=== PATIENT | female | born 1965 | race Caucasian/White ===

== ENCOUNTER 2020-01-31 14:28 | Outpatient (CLI) | payer BC, SELFPAY ==
[2020-01-31 16:24] LABS: Basophils Absolute Auto 0.1 K/mm3 (0.0-0.1); Eosinophils Absolute Auto 0.3 K/mm3 (0-0.3); Eosinophils Percent Auto 3.5 % (0-4.4); Hematocrit 43.8 % (37.0-47.0); Hemoglobin 14.9 g/dL (12.0-15.0); Immature Granulocyte Absolute 0.03 K/mm3 (0.00-0.031); Immature Granulocyte Percent A 0.4 % (0-0.5); Lymphocytes Absolute Auto 2.36 K/mm3 (0.9-3.2); Lymphocytes Percent Auto 29.4 % (18.3-44.2); Mean Corpuscular Hemoglobin 30.4 pg (26-34); Mean Corpuscular Volume 89.4 fl (80-100); Mean Platelet Volume 10.3 fl (7.4-10.4); Monocytes Absolute Auto 0.6 K/mm3 (0.1-0.6); Monocytes Percent Auto 7.1 % (2.6-8.5); Neutrophils Absolute Auto 4.7 K/mm3 (1.3-6.7); Neutrophils Percent Auto 58.6 % (45.5-73.1); Platelet Count Result 296 k/mm3 (150-375); Red Cell Distribution Width 13.2 % (11.5-14.5)
[2020-01-31 16:37] LABS: Alanine Aminotransferase 29 U/L (4-35); Albumin Level 4.4 g/dL (3.5-5.1); Alkaline Phosphatase 77 U/L (38-126); Aspartate Amino Transferase 31 U/L (14-36); Bilirubin,Total 0.5 mg/dL (0.2-1.3); Blood Urea Nitrogen 17 mg/dL (7-17); Carbon Dioxide 25 mmol/L (22-30); Chloride 104 mmol/L (98-107); Cholesterol 212 mg/dL (0-200); Estimated Glomerular Filt Rate > 60; Glucose 78 mg/dL (65-105); HDL Direct 70 mg/dL; Sodium 137 mmol/L (137-145); Triglycerides 89 mg/dL (<150); Uric Acid 7.5 mg/dL (2.5-7.5)
[2020-01-31 16:48] LABS: LDL Cholesterol Direct 105 mg/dL
[2020-01-31 16:54] LABS: Erythrocyte Sedimentation Rate 15 mm/hr (0-20)
[2020-01-31 19:37] LABS: Hemoglobin A1C 5.4 % (<5.7)
== END 2020-01-31 14:29 | disposition home or self-care (01) ==
LOC: ANHLAB 14:30
PROVIDERS: PCP Family Medicine; Visit Provider Family Medicine
DX: I10 Essential (primary) hypertension (principal); Z13.220 Encounter for screening for lipoid disorders; R53.82 Chronic fatigue, unspecified; E66.01 Morbid (severe) obesity due to excess calories; M35.1 Other overlap syndromes; M25.50 Pain in unspecified joint; M25.561 Pain in right knee
CPT/HCPCS: 36415; 80053; 80061; 83036; 84443; 84550; 85025; 85652

== ENCOUNTER 2020-02-14 12:30 | Outpatient (RCR) | payer BC, SELFPAY ==
--- NOTE | 2020-01-17 16:42 | PTOPEVAL ---
PHYSICAL THERAPY EVALUATION AND PLAN OF CARE 01-17-2020 The PT evaluation was completed for the diagnosis of R medial collateral ligament strain. The plan of care is scheduled for 1-2x/week for 4 weeks. Thank you for referring Butch Carreno to [facility]. Please review, sign, date and return this plan of care DIAMOND. I agree with and certify that the following plan of care is medically necessary. Referring Physician Date Attending Provider: Eli Potts MD *PT Outpatient Evaluation Start: 01/17/20 16:19 Document 01/17/20 13:30 YUDITH (Rec: 01/17/20 16:42 YUDITH [email or web address]) Outpatient Past Medical History Past Medical History Source of Past Medical History Patient Neurological History Hx Neurological Disorders No Significant History Cardiovascular History Hx Hypertension Yes Respiratory History Hx Respiratory Disorders No Significant History Gastrointestinal History Hx Gastrointestinal Disorders No Significant History Genitourinary History Hx Genitourinary Disorders No Significant History Musculoskeletal History Hx Other Musculoskeletal Disorders Yes: mixed connective tissue disease;obesity Hematological History Hx Hematological Disorders No Significant History Endocrine History Hx Endocrine Disorders No Significant History Reproductive History Hx Hysterectomy Yes Evaluation Information Problem Diagnosis R knee medial collateral ligament strain Onset December 31, 2019 Subjective Information knee just started hurting; Query Text:As Reported By Patient/ steroids helped the pain, but Family had to stop taking due to increased BP; knee is better and sometimes swells; Diagnostic Tests X-Rays For This Problem Yes: OA knee MRI For This Problem No Other Tests For This Problem No Prior Level of Function Activity Level (Last 3 Months) 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
--- NOTE | 2020-02-14 13:16 | PTOPEVAL ---
PHYSICAL THERAPY DISCHARGE 02-14-2020 Ms. Carreno has received 9 PT sessions, from January 16 to today, for the diagnosis of R knee medial collateral ligament strain. She has improved in all areas--decreased pain, increased strength, no longer using the cane, walking and stairs are no longer an issue and she is independent with her home exercise program. The goals have been achieved, therefore she will be discharged from PT at this time. Thank you for referring Butch to [facility] [place]. Please review, sign, date and return this discharge DIAMOND. I agree with and certify that the following plan of care is medically necessary. 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 To continue HEP. Pain Assessment Timing of Pain Assessment Timing of Pain Assessment Assessment Pain Scale Pain Scale Used Numeric (1 - 10) Self Report Pain Assessment Right Knee(s) Reported Pain Level 0 Pain Frequency Acute Other Pain Description knee swollen behind knee and below knee cap Lowest Pain Intensity 0 Greatest Pain Intensity 3 Additional Pain Comments no problems on stairs; walking at 20 min sore, but can keep walking-does not limit her walking Pain Score Pain Score 0: Self Report Lower Extremity Muscle Strength Testing General Lower Extremity Strength Gross Lower Extremity Strength standing with 1 UE hold: 3# ankle wt: 20 reps: hip abduct, knee flexion hip ext and hip flexion; SLS 30 sec with good stability ; -// bars: wobble board: stabilization, DF/PF, circles x10 with PRN touch UE; gastroc stretch with lunge x 3 reps; -B leg press 100#/ R only 80# / L only 80# x 15 each; - green theraband: 20'- walking side R, side L, forward & backwards; Gait Assessment Gait Assessment Ambulation Assistive Devices None Ambulation Ability Independent Additional Ambulation Comments go
== END 2020-02-14 14:07 | disposition home or self-care (01) ==
LOC: ANHPT 12:30
PROVIDERS: PCP Family Medicine; Visit Provider Family Medicine
DX: S83.419D Sprain of medial collateral ligament of unspecified knee, subsequent encounter (principal)
CPT/HCPCS: 97110; 97140; 97161

== ENCOUNTER 2020-03-04 00:11 | Outpatient (CLI) | payer BC, SELFPAY ==
[2020-03-04 18:55] LABS: SARS-CoV-2 RNA PCR Negative
== END 2020-03-04 00:12 | disposition home or self-care (01) ==
LOC: ANHCOVIDDT 00:11
PROVIDERS: PCP Family Medicine; Visit Provider Internal Medicine Gastroenterology
DX: Z01.818 Encounter for other preprocedural examination (principal); Z11.59 Encounter for screening for other viral diseases
CPT/HCPCS: 87635; C9803; J1200; J2405; J2590; U0003

== ENCOUNTER 2020-03-06 01:41 | Day surgery (SDC) | payer BC, SELFPAY ==
[2020-02-28 13:50] VITALS: BMI 46.5
--- NOTE | 2020-03-06 08:25 | WPDANESEPPF ---
Anes - Initial Pre Proc Eval Procedure: Operation Date: 03/06/20 09:30 Proposed Procedures p Screening Colonoscopy - Mike Banks MD Date/Time: 03/06/20 08:25 Surgeon: Mike Banks MD Pre Op Diagnosis: neoplasm screening Patient Data Age: 54 Gender: F Height: 1.63 m Weight: 123 kg Allergies Allergy/AdvReac Type Severity Reaction Status Date / Time adhesive Allergy Unknown BLISTERING Verified 02/28/20 13:49 RASH Home Medications Medication Instructions Recorded Confirmed Type diclofenac sodium 1 % topical gel 4 gm TOPICAL QID #100 gm 01/07/20 02/28/20 Rx hydrochlorothiazide 12.5 mg tablet 12.5 mg PO DAILY #90 tablet 02/27/20 02/28/20 Rx lisinopril 10 mg tablet 10 mg PO DAILY #90 tablet 02/27/20 02/28/20 Rx naproxen sodium [Aleve] 220 mg PO BID 02/28/20 03/06/20 History Patient hx anesthesia problems: none Family hx anesthesia problems: none PMFSH Past Medical History Medical History (Updated 03/06/20 @ 08:26 by Moris Ayala MD) Arthritis of knee Benign essential HTN Depression Endometriosis Mixed connective tissue disease Morbid obesity Surgical History Surgical History (Updated 01/08/20 @ 08:51 by Eli Potts MD) Hx of hysterectomy Family History Family History (Updated 01/08/20 @ 08:51 by Eli Potts MD) Other Heart disease Hypertension Social History Social History (Updated 02/05/20 @ 12:59 by Goldie Mcduffie) Years smoked: 5 Smoking status: Former smoker Tobacco type: cigarettes Second hand tobacco smoke exposure: No Smoking end date: 09/12/88 Alcohol intake: current Substance use: never Substance use type: does not use Gender identity (if verbalized by the patient): Female Anes - Eval Final PreProcedure Day of Procedure 03/06/20 08:25 Patient weight: morbidly obese Heart: regular rate and rhythm Lungs: clear to auscultation and normal air movement Airway: Mallampati scale class II Neurological: alert and oriented Last oral intake: >/= 8 hours ASA classification: III Emergent: no Anesthetic plan: proceed Anesthesia type and monitoring: general GIVS Informed Consent: The patient's anesthetic plan and its attendant risks and benefits were discussed with the patient/family/POA. Questions were solicited and answers provided to the satisfaction of the patient/family/POA.
[2020-03-06 08:55] VITALS: BP 142/79; PULSE 82; RESP 16; TEMP 36.8; O2SAT 100
[2020-03-06] MEDS: LACTATED RINGERS 1,000 ML 150 ML IV CONT (09:06)
--- NOTE | 2020-03-06 09:44 | WPDGICN ---
Assessment and Plan Assessment and plan (1) Family history of colonic polyps: Code(s): Z83.71 - Family history of colonic polyps Status: Acute Assessment and Plan: Patient's father had colon polyps. Plan is for screening colonoscopy now. Consider follow-up colonoscopy in 5 years. Further recommendations will be given after endoscopy. (2) Morbid obesity: Code(s): E66.01 - Morbid (severe) obesity due to excess calories Status: Acute (3) Mixed connective tissue disease: Code(s): M35.1 - Other overlap syndromes Status: Acute GI Consult Note Consult date/time: 03/06/20 09:44 HPI: Butch Carreno is a 54 year old female Seen in evaluation at the request of Dr. De Jesus. patient presents for screening colonoscopy. Family history is significant that her father had colon polyps. Patient states that her own weight appetite bowel movements are normal. She denies abdominal pain she denies any bleeding. Bowel habits are regular her weight has remained stable. Review of Systems Review of Systems: All systems reviewed & are unremarkable except as noted in HPI and below PMFSH Past Medical History Medical History Arthritis of knee Benign essential HTN Depression Endometriosis Mixed connective tissue disease Morbid obesity Surgical History Surgical History Hx of hysterectomy Family History Family History Other Heart disease Hypertension Social History Social History Years smoked: 5 Smoking status: Former smoker Tobacco type: cigarettes Second hand tobacco smoke exposure: No Smoking end date: 09/12/88 Alcohol intake: current Substance use: never Substance use type: does not use Gender identity (if verbalized by the patient): Female Meds Home Medications and Allergies Home Medications Medication Instructions Recorded Confirmed Type diclofenac sodium 1 % topical gel 4 gm TOPICAL QID #100 gm 01/07/20 02/28/20 Rx hydrochlorothiazide 12.5 mg tablet 12.5 mg PO DAILY #90 tablet 02/27/20 02/28/20 Rx lisinopril 10 mg tablet 10 mg PO DAILY #90 tablet 02/27/20 02/28/20 Rx naproxen sodium [Aleve] 220 mg PO BID 02/28/20 03/06/20 History Allergies Allergy/AdvReac Type Severity Reaction Status Date / Time adhesive Allergy Unknown BLISTERING Verified 02/28/20 13:49 RASH Vital Signs Vital Signs - 24 hr 03/06/20 08:55 Temperature 36.8 C Pulse Rate 82 Respiratory Rate 16 Blood Pressure 142/79 H Pulse Oximetry 100 Exam Narrative: Exam Narrative: Physical exam reveals patient to be alert. Vital signs stable. HEENT exam unremarkable. Lungs are clear to auscultation and percussion. Heart is without murmur or extra sounds. Abdominal exam bowel sounds present soft nontender with no organomegaly. Digital external rectal exam normal.
[2020-03-06 10:14] VITALS: BP 118/72; PULSE 86; RESP 21; O2SAT 98
[2020-03-06 10:24] VITALS: BP 111/65; PULSE 80; RESP 14; O2SAT 100
[2020-03-06 10:34] VITALS: BP 114/68; PULSE 77; RESP 20; O2SAT 100
[2020-03-06 10:44] VITALS: BP 107/66; PULSE 73; RESP 21; O2SAT 100
== END 2020-03-06 10:49 | disposition home or self-care (01) ==
PROVIDERS: PCP Family Medicine; Visit Provider Internal Medicine Gastroenterology
PROC: 0DJD8ZZ Inspection of Lower Intestinal Tract, Via Natural or Artificial Opening Endoscopic (ICD-10-PCS; CPT 45378; principal; 2020-03-06 09:30)
DX: Z12.11 Encounter for screening for malignant neoplasm of colon (principal); K57.30 Diverticulosis of large intestine without perforation or abscess without bleeding; K64.8 Other hemorrhoids; E66.01 Morbid (severe) obesity due to excess calories; Z68.42 Body mass index [BMI] 45.0-49.9, adult; I10 Essential (primary) hypertension; M35.1 Other overlap syndromes; M17.10 Unilateral primary osteoarthritis, unspecified knee; F32.9 Major depressive disorder, single episode, unspecified; Z87.891 Personal history of nicotine dependence; Z83.71 Family history of colonic polyps
CPT/HCPCS: 45378; J2704; J7120

== ENCOUNTER 2020-03-11 14:42 | Outpatient (CLI) | payer BC, SELFPAY ==
--- NOTE | ~2020-03-11 | MM_ITS ---
EXAMINATION: MM screening jane BI w noah HISTORY: Screening mammogram TECHNIQUE: Craniocaudal and mediolateral oblique 3-D tomosynthesis images were obtained and synthetic 2-D images were generated. CAD analysis was submitted and interpreted. COMPARISON: No prior studies for comparison. BREAST PARENCHYMAL COMPOSITION: There are scattered areas of fibroglandular density. FINDINGS: There is no evidence of suspicious mass, calcification, or architectural distortion to sugg est malignancy in either breast. There has been no suspicious interval change. IMPRESSION: 1. No mammographic evidence of malignancy. 2. Recommend routine screening mammography in one year. BI-RADS Category 1: Negative Reviewed, dictated and finalized at location A.
== END 2020-03-11 14:43 | disposition home or self-care (01) ==
LOC: ANHIMG 14:44
PROVIDERS: PCP Family Medicine; Visit Provider Family Medicine
DX: Z12.31 Encounter for screening mammogram for malignant neoplasm of breast (principal)
CPT/HCPCS: 77063; 77067

== ENCOUNTER 2020-08-20 00:12 | Outpatient (CLI) | payer BC, SELFPAY ==
[2020-08-21 16:05] LABS: SARS-CoV-2 RNA PCR Negative
== END 2020-08-20 00:13 | disposition home or self-care (01) ==
LOC: ANHCOVIDDT 00:12
PROVIDERS: PCP Family Medicine; Visit Provider Internal Medicine Critical Care Medicine
DX: Z20.828 Contact with and (suspected) exposure to other viral communicable diseases (principal)
CPT/HCPCS: 87635; C9803; U0003

== ENCOUNTER 2020-08-22 08:09 | Outpatient (CLI) | payer BC, SELFPAY ==
--- NOTE | 2020-10-03 15:08 | WPDSLEEPSTUD ---
Sleep Study Date of Study: 08/22/20 Ordering Provider: Dr.Sophia Potts Interpreting Physician: Sleep Study Type: Polysomnogram Height: 1.63 m Weight: 112.491 kg Body Mass Index: 42.5 Neck Circumference: 40.64 cm [place]: 12 Reason for Sleep Study Loud snoring, daytime fatigue, excessive daytime sleepiness. Sleep History History of loud snoring, poor quality of sleep with repeated awakenings, occasional awakening at night gasping for air, daytime sleepiness of moderate degree, comorbid conditions including hypertension and mixed connective tissue disorder. [facility] Past Medical History Medical History (Updated 09/25/20 @ 11:08 by Eli Potts MD) Arthritis of knee Benign essential HTN Depression Endometriosis Mixed connective tissue disease Morbid obesity Surgical History Surgical History Hx of hysterectomy Family History Family History (Updated 07/01/20 @ 10:20 by Benita Martel PA-C) Mother T-cell lymphoma Grandparent Breast cancer Other Heart disease Hypertension Social History Social History Social History: Years smoked: 5 Smoking status: Former smoker Tobacco type: cigarettes Second hand tobacco smoke exposure: No Smoking end date: 09/12/88 Alcohol intake: current Substance use: never Substance use type: does not use Gender identity (if verbalized by the patient): Female Medications Home Medications Medication Instructions Recorded Confirmed Type naproxen sodium [Aleve] 220 mg PO BID 02/28/20 09/25/20 History diclofenac sodium 1 % topical gel 2 g TOPICAL QID #100 g 07/15/20 09/25/20 Rx hydrochlorothiazide 12.5 mg tablet 12.5 mg PO DAILY #90 tablet 07/15/20 09/25/20 Rx lisinopril 10 mg tablet 10 mg PO DAILY #90 tablet 08/22/20 09/25/20 Rx zolpidem 10 mg tablet 10 mg PO ONCE #1 tablet 09/25/20 09/25/20 Rx Sleep Procedure Basic PSG. Sleep Architecture a total recording time 439 minutes, total sleep time 329 minutes, sleep efficiency 75%. Sleep latency 9 minutes, REM latency 250 minutes. Awake after sleep onset 100 minutes, stage N1 12.7%, N2 70.4%, N3 5.6%, stage 11.2%. Supine sleep 31.3% supine REM sleep 0% Respiratory Analysis AASM criteria used. Patient had 21 apneas, 20 obstructive and 1 central. Apnea index 3.8. There were 54 hypopneas with a hypopnea index of 9.8. AHI 13.7. Non-REM events 8.4, REM events 55.1. Supine events 9.3, non supine events 15.6. Arousals total arousals 146 with index 19.9. Spontaneous arousals 58, snore arousals 57, respiratory arousals 16. Periodic Limb Movements Forty-six leg movements observed with index 8.4, 15 associated with arousals with index 2.0. There were no PLMS. Oximetry Data mean oxygen saturation 93%, lowest saturation 77%SaO2<90%-7.9Min,SaO2<88%-3.9Min. Snoring Profile moderate degree of snoring noted. Cardiac Profile normal sinus rhythm. Mean heart rate 70 beats per minute. few PVCs noted. EEG Profile unremarkable EEG. Assessment and Plan Additional Plan patient appears to have [id number] obstructive sleep apnea. During REM sleep the severity of the disordered can be considered significant. Majority of the events occurred in the 2nd half of the study and the patient did not qualify for a split night protocol. However given the severity of the disorder particularly during REM sleep and episodes of periodic desaturation along with her comorbid conditions, patient should return for full night CPAP titration study in lab. Other measures such as weight reduction, correction of upper airway obstruction if present and proper sleep hygiene will be of additional help.
[2020-10-03 15:28] VITALS: BMI 42.5
== END 2020-08-22 08:10 | disposition home or self-care (01) ==
LOC: ANHCSM 08:10
PROVIDERS: PCP Family Medicine; Visit Provider Family Medicine
DX: G47.33 Obstructive sleep apnea (adult) (pediatric) (principal); R06.83 Snoring
CPT/HCPCS: 95810

== ENCOUNTER → 2020-10-22 01:37 | Outpatient (CLI) | payer BC, SELFPAY ==
[2020-10-22 22:34] LABS: SARS-CoV-2 RNA PCR Negative
== END ==
PROVIDERS: PCP Family Medicine; Visit Provider Internal Medicine Critical Care Medicine
DX: Z01.812 Encounter for preprocedural laboratory examination (principal); Z20.822 Contact with and (suspected) exposure to COVID-19
CPT/HCPCS: C9803; U0003; U0005

== ENCOUNTER 2020-10-24 07:04 | Outpatient (CLI) | payer BC, SELFPAY ==
--- NOTE | 2020-11-10 20:16 | WPDSLEEPSTUD ---
Sleep Study Date of Study: 10/24/20 Ordering Provider: Eli Potts MD Interpreting Physician: Concepcion Thomas MD Sleep Study Type: CPAP Titration Height: 1.63 m Weight: 112.491 kg Body Mass Index: 42.5 Neck Circumference: 40.64 cm [place]: 12 Reason for Sleep Study mild sleep apnea noted on a nocturnal polysomnogram August 22, 2020, AHI 13.7, desaturation to 77%. Sleep History Butch Carreno is a 55 year old female with loud snoring and poor quality sleep. On August 22, 2020 she had a nocturnal polysomnogram with an apnea-hypopnea index of 13.7, minimum desaturation of 77% and moderate snoring. she did not meet criteria early enough in the night to proceed with CPAP. She presents now for a CPAP titration. Her sleep complaints also included daytime fatigue and excessive daytime sleepiness. She had poor quality sleep with frequent episodes of wakening throughout the night. She also gasps for air. She had hypertension and mixed connective tissue disorder. [facility] Past Medical History Medical History (Updated 11/10/20 @ 20:29 by Concepcion Thomas MD) Arthritis of knee Benign essential HTN Depression Endometriosis Mixed connective tissue disease Morbid obesity Surgical History Surgical History Hx of hysterectomy Family History Family History Mother T-cell lymphoma Grandparent Breast cancer Other Heart disease Hypertension Social History Social History Social History: Years smoked: 5 Smoking status: Former smoker Tobacco type: cigarettes Second hand tobacco smoke exposure: No Smoking end date: 09/12/88 Alcohol intake: current Substance use: never Substance use type: does not use Gender identity (if verbalized by the patient): Female Medications Home Medications Medication Instructions Recorded Confirmed Type naproxen sodium [Aleve] 220 mg PO BID 02/28/20 09/25/20 History diclofenac sodium 1 % topical gel 2 g TOPICAL QID #100 g 07/15/20 09/25/20 Rx hydrochlorothiazide 12.5 mg tablet 12.5 mg PO DAILY #90 tablet 07/15/20 09/25/20 Rx lisinopril 10 mg tablet 10 mg PO DAILY #90 tablet 08/22/20 09/25/20 Rx zolpidem 10 mg tablet 10 mg PO ONCE #1 tablet 09/25/20 09/25/20 Rx Sleep Procedure This test was performed using the Moogi multiple channel system including EOG, EEG, submental EMG, EKG, nasal and oral airflow using thermistors and nasal pressure sensors, chest and abdominal belts for body position data, and pulse oximetry. Video monitoring was also performed. The study was scored using CMS guidelines. She self administered zolpidem 10 mg at 9:10 p.m.. CPAP was started at 5 cm using an extra small Rider FX nasal pillow and heated humidifier. CPAP was increased gradually to 10 cm with 2 cm EPR. At this pressure she spent 2 hours 10 minutes in bed, 32 minutes in REM, 1 hour 23 minutes in non-REM, had 7 central apneas 3 hypopneas with an AHI of 5.2. Sleep efficiency was 88%. Sleep Architecture The duration of the recording time is 467.3 minutes. Sleep time is 404.4 minutes. Sleep efficiency is 86.5%. Sleep latency is 14.9 minutes. REM latency is 93 minutes. She had 22 awakenings, spent 10.6% of the study awake after sleep onset, 48 minutes. Sleep architecture showed 4.5% stage I sleep, 66.6% stage II sleep, absence of stage III sleep and 18.2% stage REM. She spent 35.4% of this titration in the supine position. She had 4 REM cycles. Respiratory Analysis The apnea-hypopnea index is 1.5. The obstructive index is 0.4 and the central index is 1.0. In supine REM she had 2 obstructive hypopneas for an index of 2.3. An nonsupine REM she had 3 central apneas for an index of 6.0. And supine non-REM she had 4 central apneas and 1 obstructive hypopnea for an index of 2.8. She had no events
[2020-11-10 20:26] VITALS: BMI 42.5
== END 2020-10-24 07:05 | disposition home or self-care (01) ==
LOC: ANHCSM 07:06
PROVIDERS: PCP Family Medicine; Visit Provider Family Medicine
DX: G47.33 Obstructive sleep apnea (adult) (pediatric) (principal)
CPT/HCPCS: 95811

== ENCOUNTER 2021-08-21 08:47 | Outpatient (CLI) | payer BC, SELFPAY ==
--- NOTE | ~2021-08-21 | MM_ITS ---
EXAMINATION: MM screening jane BI w noah HISTORY: Screening TECHNIQUE: Craniocaudal and mediolateral oblique 3-D tomosynthesis images were obtained and synthetic 2-D images were generated. CAD analysis was submitted and interpreted. COMPARISON: 03/11/2020 BREAST PARENCHYMAL COMPOSITION: There are scattered areas of fibroglandular density. FINDINGS: There is no evidence of suspicious mass, calcification, or architectural distortion to sugg est malignancy in either breast. There has been no suspicious interval change. IMPRESSION: 1. No mammographic evidence of malignancy. 2. Recommend routine screening mammography in one year. BI-RADS Category 1: Negative Reviewed, dictated and finalized at location A. R LAYER
== END 2021-08-21 08:48 | disposition home or self-care (01) ==
PROVIDERS: PCP Family Medicine; Visit Provider Physician Assistant
DX: Z12.31 Encounter for screening mammogram for malignant neoplasm of breast (principal)
CPT/HCPCS: 77063; 77067

== ENCOUNTER → 2022-03-26 15:22 | Outpatient (CLI) | payer BC, SELFPAY ==
--- NOTE | ~2022-03-26 | XR_ITS ---
XR foot RT standing 2V DATE: 03/26/2022 16:24 INDICATION: Abnormal neurological findings TECHNIQUE: Weightbearing AP and lateral views COMPARISON: None FINDINGS: Prominent distal Achilles tendon calcification. Prominent plantar calcaneal enthesopathy wi thout erosive change or periostitis. There is mild to moderate osteoarthritis at the first metatarsophalangeal joint. There is mild osteoa rthritis of the second metatarsophalangeal joint. No fracture or dislocation, periosteal reaction or bone destruction. No erosive change. IMPRESSION: Prominent distal Achilles tendon calcification and prominent plantar calcaneal enthesopat hy Osteoarthritis at first and second metatarsophalangeal joints Reviewed, dictated and finalized at location A. IMPRESSION: Prominent distal Achilles tendon calcification and prominent planta r calcaneal enthesopathy Osteoarthritis at first and second metatarsophalangeal joints
--- NOTE | ~2022-03-26 | XR_ITS ---
XR hand BI arthritis min 3V 03/26/2022 16:24 Indication: Osteoarthritis Procedure: 4 views each hand Comparison: No prior studies for comparison. Findings: There is mild osteoarthritis of the right first interphalangeal joint. There is anatomic al ignment. There is mild osteoarthritis of the right first carpometacarpal and triscaphe joint. There i s mild osteoarthritis of the left first metacarpal phalangeal and interphalangeal joint as well as th e triscaphe and first carpometacarpal joints. No erosive changes. No fracture or traumatic malalignme nt Impression: 1: Mild bilateral polyarticular osteoarthritis. Reviewed, dictated and finalized at location A. Impression: 1: Mild bilateral polyarticular osteoarthritis.
--- NOTE | ~2022-03-26 | XR_ITS ---
XR foot LT standing 2V 03/26/2022 16:25 Indication: Left foot pain Procedure: 2 views left foot Comparison: No prior studies for comparison. Findings: There is mild osteoarthritis of the first MTP joint. Small degenerative calcaneal enthesoph ytes. No fracture or traumatic malalignment. No focal soft tissue abnormality. No foreign bodies. Impression: 1: Mild osteoarthritis of the first MTP joint. Reviewed, dictated and finalized at location A. Impression: 1: Mild osteoarthritis of the first MTP joint.
--- NOTE | ~2022-03-26 | XR_ITS ---
XR knee RT min 4V DATE: 03/26/2022 16:24 INDICATION: Abnormal immunological findings. Right knee pain TECHNIQUE: 4 views COMPARISON: None FINDINGS: There is tricompartment osteoarthritis with periarticular spurring at all 3 compartments. T here is moderately severe narrowing at the medial compartment joint space. No fracture or dislocation or joint effusion. No radiopaque intra-articular loose body or chondrocalc inosis. No periosteal reaction or bone destruction. IMPRESSION: Tricompartment osteoarthritis, most prominent at the medial compartment Reviewed, dictated and finalized at location A. IMPRESSION: Tricompartment osteoarthritis, most prominent at the medial compart ment
--- NOTE | ~2022-03-26 | XR_ITS ---
XR knee LT min 4V DATE: 03/26/2022 16:25 INDICATION: Abnormal immunological findings. Left knee pain. TECHNIQUE: 4 views COMPARISON: None FINDINGS: There is severe loss of medial compartment joint space height. There is periarticular spurr ing at all 3 compartments. There is osteopenia. No fracture or dislocation or joint effusion. No periosteal reaction or bone destruction. No radiopaq ue intra-articular loose body or chondrocalcinosis. IMPRESSION: Tricompartment osteoarthritis, severe joint space narrowing at the medial compartment Reviewed, dictated and finalized at location A.
== END ==
PROVIDERS: PCP Family Medicine; Visit Provider Internal Medicine
DX: M19.042 Primary osteoarthritis, left hand (principal); M19.041 Primary osteoarthritis, right hand; R76.8 Other specified abnormal immunological findings in serum; M77.31 Calcaneal spur, right foot; M19.072 Primary osteoarthritis, left ankle and foot; M19.071 Primary osteoarthritis, right ankle and foot; M17.0 Bilateral primary osteoarthritis of knee
CPT/HCPCS: 73130; 73564; 73620

== ENCOUNTER 2022-06-15 18:46 | Emergency (ER) | payer BC, SELFPAY ==
[2022-06-15 19:08] VITALS: BP 135/61; PULSE 77; RESP 16; TEMP 36.6; O2SAT 98
--- NOTE | 2022-06-15 19:10 | ED.UPPEXIN ---
HPI - Extremity Injury (Upper) General Chief Complaint: Extremity Injury, Upper Stated Complaint: Rt Arm and Shoulder Pain due to Fall Time Seen by Provider: 06/15/22 19:11 Source: patient and RN notes reviewed Mode of arrival: ambulatory Limitations: no limitations History of Present Illness HPI narrative: 56-year-old female presents with concern for right shoulder pain. She reports she was walking her dog when her arm got pulled by the leash and then she fell. She reports pain and decreased strength in the right shoulder. Reports that time she feels like she cannot lift it up. She denies bruising, swelling, open skin complaint: injury to: right, shoulder and arm Related Data Home Medications Medication Instructions Recorded Confirmed hydrochlorothiazide 12.5 mg capsule 12.5 mg PO DAILY 01/05/22 06/15/22 Allergies Allergy/AdvReac Type Severity Reaction Status Date / Time adhesive Allergy Unknown BLISTERING Verified 05/11/22 09:37 RASH Review of Systems Review of Systems: CONSTITUTIONAL: Denies malaise, chills, sweats, or fever. SKIN: Denies rash or itching, open skin, laceration, abrasion, redness, warmth, swelling. MUSCULOSKELETAL: Reports right shoulder pain and decreased NEUROLOGIC: Denies numbness, weakness All systems reviewed & are unremarkable except as noted in HPI and below PMFSH Past Medical History Medical History AUNDREA positive Arthritis of knee Benign essential HTN Depression Endometriosis Mixed connective tissue disease Morbid obesity Osteoarthritis of knees, bilateral Surgical History Surgical History Hx of hysterectomy Family History Family History Mother T-cell lymphoma Grandparent Breast cancer Other Heart disease Hypertension Social History Social History Social History: Years smoked: 5 Smoking status: Never smoker Tobacco type: cigarettes Second hand tobacco smoke exposure: No Smoking end date: 09/12/88 Alcohol intake: current Alcohol use details: occasionally Substance use: never Substance use type: does not use Gender identity (if verbalized by the patient): Female Sexual Orientation (if Verbalized by the Patient): Straight or Heterosexual Comments At time of signature, agree with nursing past medical, surgical, social and family history. There is no relevant family history pertinent to the presenting complaint Exam Narrative: GENERAL: Well-appearing, well-nourished, and in no acute distress. HEAD: Normocephalic, atraumatic. EYES: PERRLA, conjunctivae clear NECK: Supple. CHEST: Speaks in full sentences. No respiratory distress. HEART: Regular rate and rhythm. Normal and equal peripheral pulses. EXTREMITIES: Right upper extremity has normal sensation, limited range of motion. No edema erythema, warmth, or ecchymosis. 5/5 strength with upper extremity flexion and extension. 3/5 strength with shoulder abduction, 5/5 with shoulder abduction. Normal sensation with sensitivity to light touch and pain. Posterior tenderness. No open wounds, no skin tenting, no devitalized tissue or atrophy, no trophic changes, no obvious deformity, alignment normal, nearby joints and structures intact. Distal pulses palpable and equal bilaterally, skin warm, dry, pink. Capillary refill less than 3 seconds. SKIN: Warm, dry, no rash. NEURO: Alert and oriented x3. PSYCH: Normal mood and affect Course Course Emergency Course: Discussed options of x-ray with patient, do not feel an x-ray is beneficial at this time there is no humeral, clavicular, scapular, tenderness. Patient is agreeable Patient is aware of diagnosis, understands and agrees to treatment plan. Anticipatory guidance given. Patient agrees to follow-up as directed and is aware of r
== END 2022-06-15 19:31 | disposition home or self-care (01) ==
PROVIDERS: Emergency Provider Nurse Practitioner; PCP Family Medicine
DX: S43.401A Unspecified sprain of right shoulder joint, initial encounter (principal); X50.9XXA Other and unspecified overexertion or strenuous movements or postures, initial encounter; Y93.K1 Activity, walking an animal; I10 Essential (primary) hypertension; N80.9 Endometriosis, unspecified; M17.9 Osteoarthritis of knee, unspecified; E66.01 Morbid (severe) obesity due to excess calories; Z68.39 Body mass index [BMI] 39.0-39.9, adult; M35.1 Other overlap syndromes; Z86.718 Personal history of other venous thrombosis and embolism
CPT/HCPCS: 99213; A4565; G0463

== ENCOUNTER → 2023-04-26 10:37 | Outpatient (CLI) | payer BC, SELFPAY ==
--- NOTE | ~2023-04-26 | MM_ITS ---
EXAMINATION: MM screening [facility] HISTORY: Screening TECHNIQUE: Craniocaudal and mediolateral oblique 3-D tomosynthesis images were obtained and synthetic 2-D images were generated. CAD analysis was submitted and interpreted. COMPARISON: Comparison to multiple prior studies sequentially, with oldest reviewed study dated 03/11. BREAST PARENCHYMAL COMPOSITION: The breasts are almost entirely fatty. FINDINGS: There is no evidence of suspicious mass, calcification, or architectural distortion to sugg est malignancy in either breast. There has been no suspicious interval change. IMPRESSION: 1. No mammographic evidence of malignancy. 2. Recommend routine screening mammography in one year. BI-RADS Category 1: Negative Reviewed, dictated and finalized at location A.
== END ==
PROVIDERS: PCP Family Medicine; Visit Provider Physician Assistant
DX: Z12.31 Encounter for screening mammogram for malignant neoplasm of breast (principal)
CPT/HCPCS: 77063; 77067

== ENCOUNTER 2024-10-23 12:44 | Outpatient (CLI) | payer OTHER, SELFPAY ==
--- NOTE | ~2024-10-23 | XR_ITS ---
Left foot Technique: AP, oblique, and lateral views were obtained. Clinical History: Pain Findings: No acute fracture or dislocation is seen. Osseous alignment is anatomic. Joint spaces are p reserved without erosive or degenerative change. Soft tissues are unremarkable. Impression: Unremarkable left foot radiographs. Reviewed, dictated and finalized at location . [employer] Impression: Unremarkable left foot radiographs.
--- NOTE | ~2024-10-23 | XR_ITS ---
Right foot Technique: AP, oblique, and lateral views were obtained. Clinical History: Pain Findings: No acute fracture or dislocation is seen. Osseous alignment is anatomic. Joint spaces are p reserved without erosive or degenerative change. Soft tissues are unremarkable. Impression: Unremarkable right foot radiographs. Reviewed, dictated and finalized at [facility]. E DIGGER Impression: Unremarkable right foot radiographs.
--- NOTE | ~2024-10-23 | XR_ITS ---
HISTORY: Pain in unspecified joint COMPARISON: 03/26/2022 TECHNIQUE: 3 views of the bilateral hands were performed. FINDINGS: No acute fracture is identified. Redemonstration of degenerative change within the first carpometacarpal joint space bilaterally. Gullwing deformity is now identified within the proximal interphalangeal joint spaces of the second, third, fourth and fifth digits of the left hand. The remaining joint spaces are preserved. The carpal arcs are intact. Mild radiocarpal joint space narrowing with sclerosis of the distal radius is present. Periarticular osteopenia is now noted, increased from prior. Remaining bone mineralization is age-appropriate. No significant soft tissue swelling. No radiopaque foreign body is identified. IMPRESSION: Interval progression of the degenerative change within the bilateral hands, as detailed above. Reviewed, dictated and finalized at location A. PACKER
== END 2024-10-23 12:45 | disposition home or self-care (01) ==
LOC: MICIMG 12:46
PROVIDERS: PCP Family Medicine; Visit Provider Internal Medicine
DX: M19.042 Primary osteoarthritis, left hand (principal); M19.041 Primary osteoarthritis, right hand; M79.672 Pain in left foot
CPT/HCPCS: 73130; 73630

== ENCOUNTER 2024-12-19 11:15 | Outpatient (CLI) | payer OTHER, SELFPAY ==
--- NOTE | ~2024-12-19 | MM_ITS ---
EXAMINATION: MM screening [facility] BI w [facility] HISTORY: Screening TECHNIQUE: Craniocaudal and mediolateral oblique 3-D tomosynthesis images were obtained and synthetic 2-D images were generated. CAD analysis was submitted and interpreted. COMPARISON: Comparison to multiple prior studies sequentially, with oldest reviewed study dated 03/11. BREAST PARENCHYMAL COMPOSITION: Not Dense: The breasts are almost entirely fatty. FINDINGS: There is no evidence of suspicious mass, calcification, or architectural distortion to sugg est malignancy in either breast. There has been no suspicious interval change. IMPRESSION: 1. No mammographic evidence of malignancy. 2. Recommend routine screening mammography in one year. BI-RADS Category 1: Negative Reviewed, dictated and finalized at location A.
== END 2024-12-19 11:16 | disposition home or self-care (01) ==
LOC: MICIMG 11:16
PROVIDERS: PCP Family Medicine; Visit Provider Family Medicine
DX: Z12.31 Encounter for screening mammogram for malignant neoplasm of breast (principal)
CPT/HCPCS: 77063; 77067